=== PATIENT | male | born 1990 | race American Indian/Alaskan Native ===

== ENCOUNTER 2016-10-07 08:38 | Emergency (ER) | payer OTHER ==
[2016-10-07] MEDS ORDERED: REGLAN IV ONE (10:53)
[2016-10-07] MEDS ORDERED: BENADRYL IV ONE (10:53)
--- NOTE | 2016-10-07 11:11 | Emergency Department Report ---
ED Head Trauma HPI - General Chief complaint: Head Injury Stated complaint: HEAD INJURY Time Seen by Provider: 10/07/16 09:31 Source: patient, EMS Mode of arrival: Ambulatory Limitations: No Limitations - History of Present Illness Initial comments: This is a 26-year-old male that presents to the ED with mother opening of worst headache of his life status post contusion to the head. Patient stated this morning he was unloading boxes at work when a roughly 100 pound box fell on his frontal head. Patient stated after impaction patient felt that her floor that landed on his left hip. Patient also complains of left hip pain that is described as aching in quality with level of 8 out of 10. Patient denies loss of consciousness. Describes headache as throbbing diffusely level of 10 out of 10. Patient denies any blurry vision, nausea, vomiting, disorientation, loss of consciousness, stiff neck, fever, chills, chest pain or shortness of breath. Patient denies any visual changes. Mother is currently present at bedside. Patient denies any allergies. History of seizures. Patient state last episode of seizure over a year ago. MD Complaint: head pain -: Gradual, This morning Mechanism of Injury: work related injury Location: frontal, other (diffuse headache) Loss of Consciousness: no Previous Trauma to this Area: No Place: work Radiation: none Severity: severe Severity scale (0 -10): 10 Quality: aching Consistency: constant Provoking factors: none known Other Injuries: none Associated Symptoms: denies other symptoms. denies: confusion, amnesia, repetitive questioning, vision changes, nausea, vomiting, vertigo, syncope, numbness, weakness, tingling, neck pain - Related Data Previous Rx's Medication Instructions Recorded Last Taken Type HYDROcodone/APAP 7.5-325 [[place] 1 each PO Q8HR PRN #15 tablet 11/02/14 Unknown Rx 7.5/325] OXcarbazepine [Trileptal] 600 mg PO BID #60 tablet 11/02/14 Unknown Rx Naproxen [Naprosyn TAB] 500 mg PO BID #30 tablet 10/07/16 Unknown Rx Allergies/Adverse reactions: Allergies Allergy/AdvReac Type Severity Reaction Status Date / Time No Known Allergies Allergy Verified 05/09/13 03:54 ED Review of Systems ROS: Stated complaint: HEAD INJURY Other details as noted in HPI Constitutional: denies: chills, fever Eyes: denies: eye pain, eye discharge, vision change ENT: denies: ear pain, throat pain Respiratory: denies: cough, shortness of breath, wheezing Cardiovascular: denies: chest pain, palpitations Endocrine: no symptoms reported Gastrointestinal: denies: abdominal pain, nausea, diarrhea Genitourinary: denies: urgency, dysuria Musculoskeletal: denies: back pain, joint swelling, arthralgia Skin: denies: rash, lesions Neurological: denies: headache, weakness, paresthesias Psychiatric: denies: anxiety, depression Hematological/Lymphatic: denies: easy bleeding, easy bruising ED Past Medical Hx - Past Medical History Previous Medical History?: Yes Hx Seizures: Yes - Surgical History Past Surgical History?: Yes Additional Surgical History: laser surgery on brain 3 years - Social History Smoking Status: Current Every Day Smoker Substance Use Type: None - Medications Home Medications: Home Medications Medication Instructions Recorded Confirmed Last Taken Type HYDROcodone/APAP 7.5-325 [[place] 1 each PO Q8HR PRN #15 tablet 11/02/14 Unknown Rx 7.5/325] OXcarbazepine [Trileptal] 600 mg PO BID #60 tablet 11/02/14 Unknown Rx Naproxen [Naprosyn TAB] 500 mg PO BID #30 tablet 10/07/16 Unknown Rx ED Physical Exam - General Limitations: No Limitations General appearance: alert, in no apparent distress - Head Head exam: Present: atraumatic, normocephalic, normal inspection - Eye Eye exam: Present: normal appearance, PERRL, EOMI. Absent: scleral icterus, conjunctival injection, nystagmus, periorbital swelling, periorbital tenderness Pupils: Present: normal accommodation - ENT ENT exam: Present: normal exam, normal orophraynx, mucous membranes moist, TM's normal bilaterally, normal external ear exam - Neck Neck exam: Present: normal inspection, full ROM. Absent: tenderness, meningismus, lymphadenopathy, thyromegaly - Respiratory Respiratory exam: Present: normal lung sounds bilaterally. Absent: respiratory distress, wheezes, rales, rhonchi, stridor, chest wall tenderness, accessory muscle use, decreased breath sounds, prolonged expiratory - Cardiovascular Cardiovascular Exam: Present: regular rate, normal rhythm, normal heart sounds. Absent: bradycardia, tachycardia, irregular rhythm, systolic murmur, diastolic murmur, rubs, gallop - GI/Abdominal GI/Abdominal exam: Present: soft, normal bowel sounds. Absent: distended, tenderness, guarding, rebound, rigid, diminished bowel sounds - Rectal Rectal exam: Present: deferred - Extremities Exam Extremities exam: Present: normal inspection, full ROM, normal capillary refill. Absent: tenderness, pedal edema, joint swelling, calf tenderness - Back Exam Back exam: Present: normal inspection, full ROM. Absent: tenderness, CVA tenderness (R), CVA tenderness (L), muscle spasm, paraspinal tenderness, vertebral tenderness, rash noted - Neurological Exam Neurological exam: Present: alert, oriented X3, CN II-XII intact, normal gait, reflexes normal - Expanded Neurological Exam Expanded Patient oriented to: Present: person, place, time Speech: Present: fluid speech (normal speech) Cranial nerves: EOM's Intact: Normal, Gag Reflex: Normal, Tongue Deviation: Normal, Nystagmus: Normal, Facial Sensation: Normal, Facial Palsy with Forehead Movement: Normal, Facial Palsy without Forehead Movement: Normal Cerebellar function: Finger to Nose: Normal, Heel to Bynum: Normal, Romberg: Normal Upper motor neuron: Triston Neglect: Normal, Pronator Drift: Normal, Babinski Sign : Normal, Sensory Extinction: Normal Sensory exam: Upper Extremity Light Touch: Normal, Upper Extremity Pin Prick: Normal, Upper Extremity Temperature: Normal, UE 2 Point Discrimination: Normal, Lower Extremity Light Touch: Normal, Lower Extremity Pin Prick: Normal, Lower Extremity Temperature: Normal, LE 2 Point Discrimination: Normal Motor strength exam: RUE: 5, LUE: 5, RLE: 5, LLE: 5 DTR: bicep (R): 2+, bicep (L): 2+, tricep (R): 2+, tricep (L): 2+, knee (R): 2+ , knee (L): 2+, ankle (R): 2+, ankle (L): 2+ Best Eye Response (Bureau): (4) open spontaneously Best Motor Response (Bureau): (6) obeys commands Best Verbal Response (Jessica): (5) oriented Bureau Total: 15 - Psychiatric Psychiatric exam: Present: normal affect, normal mood - Skin Skin exam: Present: warm, dry, intact, normal color. Absent: rash - Other Other exam information: No ecchymosis or abrasion. No swelling. ED Course Vital Signs 10/07/16 08:47 Temperature 99.1 F Pulse Rate 88 Respiratory 18 Rate Blood Pressure 145/99 O2 Sat by Pulse 99 Oximetry - Reevaluation(s) Reevaluation #1: 10/07/16 11:13 Patient is able to speak in full sentences with no signs of distress noted. Reevaluation #2: 10/07/16 11:13 Mother is currently present at bedside. I instructed mother that patient is receiving Benadryl which which causes sedation/drowsiness and patient should not drive home after discharge. Mother agrees to have inpatient driven home after discharge. - Medical Decision Making Ed course: This is a 26-year-old that presents with head contusion and left hip strain 1- patient was examined by myself. Patient describes headache as a worse headache he ever had in his life. A CT scan of head/brain has been obtained without contrast. Dictated by radiologist with normal findings and no findings of intracranial or subdural hemorrhage. An x-ray was also obtained of the left hip were normal findings and dictated by radiologist. Patient was notified of CT and x-ray findings were no further questionable to palpation. 2- patient received Benadryl and Reglan IV. Patient status headache has subsided post treatment in the ED. 3- patient received naproxen at the time of discharge was instructed to follow- up with her primary care doctor in 3-5 days or if symptoms such as severe headache, blurry vision, nausea, vomiting, stiff neck, chest pain, shortness of breath return to emergency room as soon as possible. 4- At time time of discharge, the patient does not seem toxic or ill in appearance. No acute signs of distress noted. Patient agrees to discharge treatment plan of care. No further questions noted by the patient. 5- patient and mother was notified not to operate any machinery after discharge due to sedation/drowsiness of Benadryl that was prescribed in the ED. Mother stated she will drive the patient home. - NEXUS Criteria Focal neurological deficit present: No Midline spinal tenderness present: No Altered level of consciousness: No Intoxication present: No Distracting injury present: No NEXUS results: C-Spine can be cleared clinically by these results. Imaging is not required. Critical care attestation.: If time is entered above; I have spent that time in minutes in the direct care of this critically ill patient, excluding procedure time. ED Disposition Clinical Impression: Contusion Qualifiers: Encounter type: initial encounter Contusion area: head Contusion of head detail : scalp Qualified Code(s): S00.03XA - Contusion of scalp, initial encounter Hip strain Qualifiers: Encounter type: initial encounter Laterality: left Qualified Code(s): S76.012A - Strain of muscle, fascia and tendon of left hip, initial encounter Headache Qualifiers: Headache type: unspecified Headache chronicity pattern: acute headache Intractability: not intractable Qualified Code(s): R51 - Headache Disposition: DC- TO HOME OR SELFCARE Is pt being admited?: No Does the pt Need Aspirin: No Condition: Stable Instructions: Naproxen (By mouth), Acute Headache (ED), Contusion in Adults (ED ), Hip Sprain (ED) Additional Instructions: follow-up with your primary care doctor in 3-5 days or if symptoms such as severe headache, blurry vision, nausea, vomiting, stiff neck, chest pain, shortness of breath return to emergency room as soon as possible. Take naproxen as needed for headache pain. Prescriptions: Naproxen [Naprosyn TAB] 500 mg PO BID #30 tablet Referrals: PRIMARY MD HAYES [Primary Care Provider] - 3-5 Days KALEIGH PIKE MD [Staff Physician] - 3-5 Days [facility] [Outside] - 3-5 Days [facility] [Outside] - 3-5 Days Forms: Work/School Release Form(ED)
--- NOTE | 2016-10-07 11:32 | XRay Report ---
LEFT HIP RADIOGRAPHS INDICATION: Fall. COMPARISON: None similar. FINDINGS: An AP pelvic radiograph with frog-leg projection of the left hip demonstrate intact articulation. Imaged bilateral SI and hip joints appear intact. Nonobstructive bowel gas pattern. Small left hemipelvic phlebolith. CONCLUSION: No acute radiographic abnormality. Thank you for the opportunity to participate in this patient's care.
--- NOTE | 2016-10-07 12:08 | Cat Scan Report ---
CT HEAD WITHOUT CONTRAST INDICATION: Head trauma with headache. COMPARISON: 11/02/2014. FINDINGS: Noncontrast head CT demonstrates stable ventricles and sulci without acute or recent infarct, hemorrhage, mass effect or midline shift, including asymmetric possible enlargement of the left temporal horn as on axial image 19, series 2. No abnormal extra-axial fluid collections. Posterior fossa structures and basilar cisterns appear within normal limits. Symmetric eye globes. Air-fluid level seen in the right maxillary sinus. Mild right ethmoid sinusitis as well. Left sphenoid sinus is now clear. Clear remainder imaged paranasal sinuses and mastoid air cells. Intact calvarium. Normal overlying scalp soft tissues. CONCLUSION: Acute right maxillary sinusitis and few other findings without acute intracranial CT abnormality, as described. Please correlate. Thank you for the opportunity to participate in this patient's care.
[2016-10-07 13:20] VITALS: BP 120/80
== END 2016-10-07 13:20 | disposition home or self-care (01) ==
LOC: ED 08:38
DX: S76.012A Strain of muscle, fascia and tendon of left hip, initial encounter (principal); S00.03XA Contusion of scalp, initial encounter; R51 Headache; F17.200 Nicotine dependence, unspecified, uncomplicated; W20.8XXA Other cause of strike by thrown, projected or falling object, initial encounter; Y93.89 Activity, other specified; Y99.8 Other external cause status; Y92.69 Other specified industrial and construction area as the place of occurrence of the external cause
CPT/HCPCS: 70450; 73502; 96374; 96375; 99284; J1200; J2765

== ENCOUNTER 2020-02-27 12:53 | Emergency (ER) | payer OTHER ==
[2020-02-27 13:04] VITALS: BP 133/76
--- NOTE | 2020-02-27 14:01 | Emergency Department Report ---
ED ENT HPI - General Chief complaint: Dental/Oral Stated complaint: MOUTH/GUMS/JAW SWOLLEN Source: patient Mode of arrival: Ambulatory Limitations: No Limitations - History of Present Illness Initial comments: 29-year-old -[place] male presents to the emergency room complaining of right side gum swelling jaw swelling for a week. Patient states that he tried ibuprofen did not help. Patient reports he thinks this is wisdom teeth trying to come in. Patient denies any fever chills no nausea no vomiting. MD complaint: tooth pain Onset/Timin -: days(s) Location: tooth # Severity: severe Severity scale (0 -10): 8 Quality: aching Consistency: constant Improves with: none Associated Symptoms: gum swelling, toothache - Related Data Previous Rx's Medication Instructions Recorded Last Taken Type HYDROcodone/APAP 7.5-325 [[place] 1 each PO Q8HR PRN #15 tablet 11/02/14 Unknown Rx 7.5/325] OXcarbazepine [Trileptal] 600 mg PO BID #60 tablet 11/02/14 Unknown Rx Naproxen [Naprosyn TAB] 500 mg PO BID #30 tablet 10/07/16 Unknown Rx Clindamycin [Clindamycin CAP] 300 mg PO Q8H 7 Days #21 cap 02/27/20 Unknown Rx Ibuprofen [Motrin 600 MG tab] 600 mg PO Q8H PRN #30 tablet 02/27/20 Unknown Rx Allergies Allergy/AdvReac Type Severity Reaction Status Date / Time No Known Allergies Allergy Verified 05/09/13 03:54 ED Dental HPI - General Chief complaint: Dental/Oral Stated complaint: MOUTH/GUMS/JAW SWOLLEN Source: patient Mode of arrival: Ambulatory Limitations: No Limitations - Related Data Previous Rx's Medication Instructions Recorded Last Taken Type HYDROcodone/APAP 7.5-325 [[place] 1 each PO Q8HR PRN #15 tablet 11/02/14 Unknown Rx 7.5/325] OXcarbazepine [Trileptal] 600 mg PO BID #60 tablet 11/02/14 Unknown Rx Naproxen [Naprosyn TAB] 500 mg PO BID #30 tablet 10/07/16 Unknown Rx Clindamycin [Clindamycin CAP] 300 mg PO Q8H 7 Days #21 cap 02/27/20 Unknown Rx Ibuprofen [Motrin 600 MG tab] 600 mg PO Q8H PRN #30 tablet 02/27/20 Unknown Rx Allergies Allergy/AdvReac Type Severity Reaction Status Date / Time No Known Allergies Allergy Verified 05/09/13 03:54 ED Review of Systems ROS: Stated complaint: MOUTH/GUMS/JAW SWOLLEN Other details as noted in HPI Comment: All other systems reviewed and negative ED Past Medical Hx - Past Medical History Previous Medical History?: Yes Hx Seizures: Yes - Surgical History Past Surgical History?: Yes Additional Surgical History: laser surgery on brain 3 years - Social History Smoking Status: Current Every Day Smoker - Medications Home Medications: Home Medications Medication Instructions Recorded Confirmed Last Taken Type HYDROcodone/APAP 7.5-325 [[place] 1 each PO Q8HR PRN #15 tablet 11/02/14 Unknown Rx 7.5/325] OXcarbazepine [Trileptal] 600 mg PO BID #60 tablet 11/02/14 Unknown Rx Naproxen [Naprosyn TAB] 500 mg PO BID #30 tablet 10/07/16 Unknown Rx Clindamycin [Clindamycin CAP] 300 mg PO Q8H 7 Days #21 cap 02/27/20 Unknown Rx Ibuprofen [Motrin 600 MG tab] 600 mg PO Q8H PRN #30 tablet 02/27/20 Unknown Rx ED Physical Exam - General Limitations: No Limitations General appearance: alert, in no apparent distress - Head Head exam: Present: atraumatic, normocephalic - Eye Eye exam: Present: normal appearance - Expanded ENT Exam Expanded Teeth exam: Present: dental tenderness # (31), gingival enlargement - Neck Neck exam: Present: normal inspection, full ROM - Respiratory Respiratory exam: Absent: accessory muscle use - Cardiovascular Cardiovascular Exam: Present: regular rate, normal rhythm. Absent: systolic murmur, diastolic murmur, rubs, gallop - Neurological Exam Neurological exam: Present: alert, oriented X3, normal gait - Psychiatric Psychiatric exam: Present: normal affect, normal mood - Skin Skin exam: Present: warm, dry, intact, normal color. Absent: rash ED Course Vital Signs 02/27/20 13:03 Temperature 97.9 F Pulse Rate 99 H Respiratory 14 Rate Blood Pressure 133/76 O2 Sat by Pulse 95 Oximetry ED Medical Decision Making - Medical Decision Making 29-year-old -[place] male presents to the emergency room complaining of right side gum swelling jaw swelling for a week. Patient states that he tried ibuprofen did not help. Patient reports he thinks this is wisdom teeth trying to come in. Patient denies any fever chills no nausea no vomiting. Patient will be placed on clindamycin 300 mg 3 times a day and ibuprofen 600 mg every 8 hours as needed. Patient is to follow-up with a dentist or surgeon. Critical care attestation.: If time is entered above; I have spent that time in minutes in the direct care of this critically ill patient, excluding procedure time. ED Disposition Clinical Impression: Dental abscess Disposition: DC-01 TO HOME OR SELFCARE Is pt being admited?: No Does the pt Need Aspirin: No Condition: Stable Instructions: Dental Abscess, [id number] Additional Instructions: Complete antibiotics as prescribed. Pain medication as needed. Follow-up with a dentist. Prescriptions: Clindamycin [Clindamycin CAP] 300 mg PO Q8H 7 Days #21 cap Ibuprofen [Motrin 600 MG tab] 600 mg PO Q8H PRN #30 tablet PRN Reason: Pain Referrals: [facility] [Outside] - 3-5 Days [facility] [Outside] - 3-5 Days Forms: Work/School Release Form(ED)
== END 2020-02-27 16:09 | disposition home or self-care (01) ==
LOC: ED 12:53
DX: K04.7 Periapical abscess without sinus (principal); R56.9 Unspecified convulsions; F17.200 Nicotine dependence, unspecified, uncomplicated; Z98.890 Other specified postprocedural states; Z79.1 Long term (current) use of non-steroidal anti-inflammatories (NSAID); Z79.899 Other long term (current) drug therapy
CPT/HCPCS: 99282